=== PATIENT | male | born 1965 | race Caucasian/White ===

== ENCOUNTER 2017-06-29 14:03 | Emergency (ER) | payer OTHER ==
[~2017-06-29] VITALS: Ht 175.3 cm; Wt 107.7 kg
[2017-06-29 14:11] VITALS: BP 136/95
--- NOTE | 2017-06-29 14:18 | NUR ---
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 DENIES TRAUMA. HX OF HYPOTHYROID. AAOX4 WITH EVEN AND STEADY GAIT; LUNGS CLEAR BL; HR EVEN AND REGULAR; 8/10 AT THIS TIME; PATIENT POSITIONED FOR COMFORT; HOB ELEVATED; BEDRAILS UP X2; BED DOWN. ER MD MADE AWARE OF PT STATUS.
--- NOTE | 2017-06-29 14:19 | NUR ---
Patient being evaluated by DR WILKES at bedside.
--- NOTE | 2017-06-29 14:20 | NUR ---
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 DENIES TRAUMA. HX OF THYROID. AAOX4 WITH EVEN AND STEADY GAIT; LUNGS CLEAR BL; HR EVEN AND REGULAR; 8/10 AT THIS TIME; VSS; PATIENT POSITIONED FOR COMFORT; HOB ELEVATED; BEDRAILS UP X2; BED DOWN. ER MD MADE AWARE OF PT STATUS.
[2017-06-29] MEDS ORDERED: TETRACAINE HCL/PF 0.5% OPTH 4 ML BTL OP ONE (14:25)
[2017-06-29] MEDS ORDERED: FLUORESCEIN OPTH STRIP 1 MG ONE (14:46)
[2017-06-29 15:00] VITALS: BP 110/79
--- NOTE | 2017-06-29 15:00 | NUR ---
Patient discharged with v/s stable. Written and verbal after care instructions given and explained. Patient alert, oriented and verbalized understanding of instructions. Ambulatory with steady gait. All questions addressed prior to discharge. ID band removed. Patient advised to follow up with PMD. Rx of KEFLEX & CIPRO given. Patient educated on indication of medication including possible reaction and side effects. Opportunity to ask questions provided and answered.
== END 2017-06-29 15:00 | disposition home or self-care (01) ==
LOC: MED 14:03
DX: H10.89 Other conjunctivitis (principal); H01.003 Unspecified blepharitis right eye, unspecified eyelid; R03.0 Elevated blood-pressure reading, without diagnosis of hypertension
CPT/HCPCS: 99283

== ENCOUNTER 2020-12-15 19:39 | Emergency (ER) | payer MEDICAID, OTHER ==
[~2020-12-15] VITALS: Ht 175.3 cm; Wt 113.4 kg
[2020-12-15 19:42] VITALS: BP 130/78
--- NOTE | 2020-12-15 19:42 | NUR ---
TO BED AMBULATORY
--- NOTE | 2020-12-15 19:45 | NUR ---
55 YO M BIB SELF FOR C/O L LEG PAIN. PT STATED, " I FELL X 1 WEEK AGO AND THE PAIN HAS BEEN GETTING WORSE SINCE THEN." PT AMBULATORY, STEADY GAIT. PT DESCRIBES PAIN SHOOTING PAIN DOWN L LEG ORIGINATING FROM L BUTTOCKS AREA. PT STATED HE LOST HIS FOOTING AND FELL BACK ONTO LEFT LEG. HX: DENIES RX: DENIES AX: DENIES
[2020-12-15] MEDS ORDERED: diazePAM 5 MG TAB PO ONE (20:15)
[2020-12-15] MEDS ORDERED: KETOROLAC 30 MG/ML VIAL IM ONE (20:15)
--- NOTE | 2020-12-15 20:37 | NUR ---
PAIN REASSESSED; PAIN DECREASED /, PT STATES IT IS TOLERABLE @ THIS TIME. WILL CONTINUE TO OBSERVE
[2020-12-15] MEDS ORDERED: NAPR-54 PO (21:31)
[2020-12-15] MEDS ORDERED: LID5T TP (21:31)
[2020-12-15 21:35] VITALS: BP 110/79
--- NOTE | 2020-12-15 21:35 | NUR ---
Patient discharged with v/s stable. Written and verbal after care instructions given and explained. Patient alert, oriented and verbalized understanding of instructions. Ambulatory with steady gait. All questions addressed prior to discharge. ID band removed. Patient advised to follow up with PMD. Rx of LIDOCAINE, NAPROXEN given. Patient educated on indication of medication including possible reaction and side effects. Opportunity to ask questions provided and answered.
== END 2020-12-15 21:35 | disposition home or self-care (01) ==
LOC: MED 19:39
DX: S73.102A Unspecified sprain of left hip, initial encounter (principal); W10.8XXA Fall (on) (from) other stairs and steps, initial encounter; Y93.89 Activity, other specified; Y92.89 Other specified places as the place of occurrence of the external cause; Y99.8 Other external cause status
CPT/HCPCS: 72100; 73502; 96372; 99284; J1885; 99283

== ENCOUNTER 2021-04-30 10:23 | Emergency (ER) | payer SELFPAY ==
[~2021-04-30] VITALS: Ht 175.3 cm; Wt 110.7 kg
[~2021-04-30 10:23] MED LIST: LID5T TP; NAPR-54 PO
[2021-04-30 10:35] VITALS: BP 138/79
--- NOTE | 2021-04-30 11:00 | NUR ---
11:00-PATIENT LEFT WITHOUT BEING SEEN BY DR. CHEW. NO FURTHER CARE PROVIDED FOR PATIENT.
[2021-04-30] MEDS ORDERED: MAGN400S60 PO (23:35)
[2021-04-30] MEDS ORDERED: LEVO0.1T18 PO (23:41)
== END 2021-04-30 11:00 | disposition left against medical advice (07) ==
LOC: MED 10:23
DX: Z53.21 Procedure and treatment not carried out due to patient leaving prior to being seen by health care provider (principal)

== ENCOUNTER 2021-04-30 18:43 | Emergency (ER) | payer SELFPAY ==
[~2021-04-30] VITALS: Ht 175.3 cm; Wt 110.7 kg
[2021-04-30 19:29] VITALS: BP 141/89
--- NOTE | 2021-04-30 19:42 | NUR ---
PATIENT AMBULATED TO THE BATHROOM AND THEN OUT TO THE LOBBY
--- NOTE | 2021-04-30 19:43 | NUR ---
ERMD MADE AWARE OF LEFT SHOULDER PAIN AND NUMBNESS AND TINGLING OF THE ARM
[2021-04-30 20:47] LABS: BASOPHILS # (AUTO) 0.1 K/uL (0.00-0.22); BASOPHILS % (AUTO) 0.6 % (0.0-2.0); EOSINOPHILS # (AUTO) 0.4 K/uL (0-0.4); EOSINOPHILS % (AUTO) 3.1 % (0.0-4.0); HEMATOCRIT 41.8 % (36-52); HEMOGLOBIN 14.1 g/dL (12.0-18.0); LYMPHOCYTES # (AUTO) 1.8 K/uL (2.0-11.5); LYMPHOCYTES % (AUTO) 14.5 % (20.5-51.1); MEAN CORPUSCULAR HEMOGLOBIN 31 pg (27-31); MEAN CORPUSCULAR HGB CONC 34 g/dL (33-37); MONOCYTES # (AUTO) 1.1 K/uL (0.8-1.0); MONOCYTES % (AUTO) 8.8 % (1.7-9.3); NEUTROPHILS # (AUTO) 9.2 K/uL (1.8-7.7); PLATELET COUNT (AUTO) 337 K/uL (140-450); RED BLOOD CELL COUNT(AUTO) 4.54 MIL/uL (4.20-6.10); RED CELL DISTRIBUTION WIDTH 13.7 % (11.6-13.7); WHITE BLOOD COUNT (AUTO) 12.7 K/uL (4.8-10.8)
[2021-04-30 21:06] LABS: ALBUMIN 3.8 g/dL (3.4-5.0); ANION GAP 8.5 (8-16); CREATININE 1.2 mg/dL (0.6-1.3); POTASSIUM 4.5 mmol/L (3.5-5.1); TOTAL BILIRUBIN 0.5 mg/dL (0.0-1.0)
--- NOTE | 2021-04-30 22:10 | NUR ---
CHAIR Radha, SONIYA EXAMINING PATIENT
--- NOTE | 2021-04-30 22:25 | NUR ---
PATIENT ASSESSMENT COMPLETED BY SONIYA, NO NURSING INTERVENTIONS REQUIRED AT THIS TIME.
[2021-04-30 22:36] LABS: APPEARANCE,URINE CLEAR (CLEAR); BILIRUBIN,URINE NEGATIVE (NEGATIVE); BLOOD, URINE NEGATIVE (NEGATIVE); COLOR,URINE YELLOW (YELLOW); LEUKOCYTE ESTERASE ,URINE NEGATIVE (NEGATIVE); NITRITE, URINE NEGATIVE (NEGATIVE); UGLUCOSE NEGATIVE (NEGATIVE)
--- NOTE | 2021-04-30 23:32 | NUR ---
MOVED TO ER BED 4
[2021-04-30] MEDS ORDERED: MAGN400S60 PO (23:35)
[2021-04-30 23:40] VITALS: BP 141/89
--- NOTE | 2021-04-30 23:40 | NUR ---
Patient discharged with v/s stable BY . Written and verbal after care instructions given and explained BY . Patient alert, oriented and verbalized understanding of instructions BY . Ambulatory with steady gait. All questions addressed prior to discharge BY . ID band removed BY . Patient advised to follow up with PMD BY . Rx of MILK OF MAGNESIA given. Patient educated on indication of medication including possible reaction and side effects BY . Opportunity to ask questions provided and answered BY .
[2021-04-30] MEDS ORDERED: LEVO0.1T18 PO (23:41)
--- NOTE | 2021-05-01 11:24 | NUR ---
PT REQUESTED RX TO BE SENT TO [place] [id number] [address]-CALLED SPOKE TO [facility]
== END 2021-04-30 23:40 | disposition home or self-care (01) ==
LOC: MED 18:43
DX: K59.00 Constipation, unspecified (principal); E03.9 Hypothyroidism, unspecified; Z98.890 Other specified postprocedural states; Z79.899 Other long term (current) drug therapy; Z79.1 Long term (current) use of non-steroidal anti-inflammatories (NSAID)
CPT/HCPCS: 36415; 80053; 81003; 83690; 84484; 85025; 99284